=== PATIENT | male | born 1970 | race Caucasian/White ===

== ENCOUNTER 2016-04-25 12:57 | Emergency (ER) | payer BC ==
[2016-04-25 13:40] VITALS: RESP 18
--- NOTE | 2016-04-25 13:50 | UCPHY ---
[id number] yesterday and again today, denies blood clots, reports brown formed stool with blood tinged water in toilet. denies abd pain. also c/o mild chest discomfort last night 1230 while at rest. denies cp at this time HPI/ROS: CHIEF COMPLAINT: Bright red blood per rectum HISTORY OF PRESENT ILLNESS: This is a 45-year-old male who is status post NSTEMI and LAD thrombus/stenting on February 25, 2016 (2 months ago). He is currently taking Coumadin 5 mg daily and aspirin 325 mg daily. Last night he had an episode of bright red blood per rectum with blood in the toilet bowl after moving his bowels. He had a similar event this morning. He feels slightly dizzy (he has had dizziness in the past with positional changes but feels a little more lightheaded today). He does not feel short of breath. He is not having left-sided chest pain. He does report that last night had an episode of bilateral upper chest pain. This was present on waking this morning. He is not having any chest pain at present. He denies abdominal pain. He has had hemorrhoids in the past but is not aware of any at present. He has had recent upper respiratory infection, resolving. REVIEW OF SYSTEMS: A ten point review of systems was performed and is negative with the exception of the items mentioned in the HPI. 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 - Physical Exam Exam: General Appearance: Alert. Vital signs reviewed. Eyes: Pupils equal and round, no conjunctival injection, no discharge. Anicteric. ENT, Mouth: Mucous membranes are moist, no oropharyngeal erythema or edema. Neck: No lymphadenopathy, supple. No JVD. Respiratory: Lungs are clear to auscultation; no wheezes, rales, or rhonchi. Cardiovascular: Regular rate and rhythm; no murmur, rub, or gallop. Gastrointestinal: Abdomen is soft and nontender, no masses or organomegaly, bowel sounds normal. Rectal: No external hemorrhoids. Brown stool on the examining glove. Skin: Warm and dry, no rashes on exposed skin, normal color. Back: Nontender to palpation over the thoracolumbar spine. No CVAT. Extremities: No lower extremity edema, no calf tenderness or swelling. Neurological: Alert and oriented. Moving all four extremities easily and equally. Psychiatric: Normal affect. Constitutional: Initial Vital Signs Temperature (C) 37.0 C 04/25/16 13:33 Heart Rate 60 04/25/16 13:33 Respiratory Rate 18 04/25/16 13:33 Blood Pressure 116/90 H 04/25/16 13:33 O2 Sat (%) 96 04/25/16 13:33 O2 Delivery Mode Room Air Allergies/Adverse Reactions: No Known Allergies Allergy (Unverified 04/25/16 13:33) Home Medications: Medication Instructions Recorded Aspirin EC [Aspirin EC 325 mg (*)] 325 mg PO DAILY #0 tab 02/28/16 Carvedilol [Coreg (*)] 6.25 mg PO BIDMEAL #60 tab 02/28/16 Nitroglycerin [Nitrostat 0.4 mg 0.4 mg SL Q5M PRN #1 btl 02/28/16 (*)] Prasugrel HCl [Effient 10mg (*)] 10 mg PO DAILY #30 tab 02/28/16 Ramipril [Altace 2.5mg (*)] 2.5 mg PO DAILY #30 cap 02/28/16 Rosuvastatin Calcium [Crestor 40mg 40 mg PO DAILY #30 tab 02/28/16 (*)] Warfarin Sodium [Coumadin 5MG (*)] 5 mg PO DAILY16 #30 tab 02/28/16 Aspirin EC [Aspirin EC 325 mg (*)] 325 mg PO DAILY #30 tab 03/02/16 Enoxaparin [Lovenox 100 MG (*)] 90 mg SC BID #14 syr 03/02/16 Pantoprazole Sodium [Protonix 40mg 40 mg PO DAILY #30 tab 03/02/16 (*)] Potassium Cl [Klor-Con 20 meq (*)] 20 meq PO DAILY #10 tab 04/25/16 Medical Decision Making - Diagnostics EKG Interpretation: 12 lead EKG is interpreted in Trace master View by emergency department physician. Sinus rhythm with a rate is 62. There is T-wave inversion in lead 3 that is not seen on a previous EKG, no acute ischemic changes. ED Course/Re-evaluation: Recent SC/cath/stent on triple anti-coagulation who presents with asymptomatic BRBPR. No rectal pain, no external hemorrhoids. INR under two. CBC WNL, HGB 15. VS stable, no evidence of hemodynamic instability. EKG without acute changes. Initially I suspected bleeding from anticoagulants, which still might be the case. Since he is not unstable I think that he can return home. He will return if bleeding persists or worsens or if he becomes symptomatic. I spoke with Dr. Jacques, senior telecommunications engineer for cardiology. She recommends K replacement, which is being prescribed. He will FU with cardiology early this week (day after tomorrow). Other sources of lower GI bleeding that I considered include but are not limited toexternal or internal hemorrhoids, anal fissure, malignancy, ulcerative colitis, infectious colitis, and angiodysplasia. - Data Points Laboratory Results: Laboratory Results 04/25/16 14:03 04/25/16 14:03 Departure - Departure Disposition: Home, Routine, Self-Care Clinical Impression: Rectal bleeding Condition: Good Instructions: Rectal Bleeding (ED) Additional Instructions: Follow up with Dr. Ricks. Talk with him about how long you need to continue triple anticoagulation. Call his office tomorrow to schedule an appointment. Make sure that he is aware of this rectal bleeding. If the bleeding persists he will also need to follow up with gastroenterology. If you continue with bright red blood per rectum, if you develop chest pain, P of abdominal pain, if you are short of breath, if you become dizzy or light- headed--you should be re-evaluated. I am starting you on some potassium replacement. Referrals: Jason Ricks MD [Medical Doctor] - As per Instructions Prescriptions: Potassium Cl [Klor-Con 20 meq (*)] 20 meq PO DAILY #10 tab - PQRS PQRS Measurement: Does not apply.
--- NOTE | 2016-04-25 13:50 | CPEKG ---
Heart Rate: 62 RR Interval: 968 P-R Interval: 196 QRSD Interval: 90 QT Interval: 416 QTC Interval: 423 P [place]: 41 QRS [place]: 8 T Wave [place]: 8 EKG Severity - NORMAL ECG - EKG Impression: SINUS RHYTHM Electronically Signed By: Shae Eckert 25-Apr-2016 15:14:13
[2016-04-25 14:11] LABS: % IMMATURE GRANULYOCYTES 0.2 % (0.0-1.1); ABSOLUTE IMMATURE GRANULOCYTES 0.01 10^3/uL (0.00-0.10); ADD DIFF? NO; ADD MORPH? NO; ADD SCAN? NO; ATYPICAL LYMPHOCYTE FLAG 20 (0-99); FRAGMENT RBC FLAG 0 (0-99); HEMATOCRIT 44.2 % (40.0-51.0); HEMOGLOBIN 15.2 g/dL (13.7-17.5); LEFT SHIFT FLG 0 (0-99); LIPEMIA HEMOLYSIS FLAG 90 (0-99); MEAN CELL HEMOGLOBIN 29.4 pg (27.9-34.1); MEAN CELL HEMOGLOBIN CONCENTR. 34.4 g/dL (32.4-36.7); MEAN CELL VOLUME 85.5 fL (81.5-99.8); MEAN PLATELET VOLUME 9.8 fL (8.7-11.7); PLATELET CLUMPS FLAG 30 (0-99); PLATELET COUNT 231 10^3/uL (150-400); RED BLOOD CELL COUNT 5.17 10^6/uL (4.40-6.38)
[2016-04-25 14:22] LABS: INR 1.96 (0.83-1.16); PROTIME(PATIENT) 21.9 SEC (12.0-15.0)
[2016-04-25 14:24] LABS: ANION GAP 8 mEq/L (8-16); CALCIUM 6.4 mg/dL (8.5-10.4); CARBON DIOXIDE 21 mEq/l (22-31); CHLORIDE 115 mEq/L (97-110); CREATININE 0.6 mg/dL (0.7-1.3); GLOMERULAR FILTRATION RATE > 60; GLUCOSE 72 mg/dL (70-100); POTASSIUM 3.1 mEq/L (3.5-5.2); SODIUM 144 mEq/L (134-144)
[2016-04-25 15:37] VITALS: BP 104/73; PULSE 58; TEMP 98.4; O2SAT 95
== END 2016-04-25 15:37 | disposition home or self-care (01) ==
LOC: CED 12:57
DX: K62.5 Hemorrhage of anus and rectum (principal); R42 Dizziness and giddiness; Z79.01 Long term (current) use of anticoagulants; Z95.9 Presence of cardiac and vascular implant and graft, unspecified
CPT/HCPCS: 80048-PO; 82270-PO; 85025-PO; 85610-PO; 93010-PO; 99214-PO; G0463-PO

== ENCOUNTER 2016-08-22 02:26 | Observation (INO) | payer BC ==
--- NOTE | 2016-08-22 02:49 | CPEKG ---
Heart Rate: 73 RR Interval: 822 P-R Interval: 192 QRSD Interval: 94 QT Interval: 392 QTC Interval: 432 P [place]: 54 QRS [place]: 32 T Wave [place]: 18 EKG Severity - NORMAL ECG - EKG Impression: SINUS RHYTHM Electronically Signed By: Carmelo Davis 22-Aug-2016 04:12:02
[2016-08-22] MEDS ORDERED: ASPIRIN 81 MG CHEWABLE TAB ONE (02:51)
[2016-08-22] MEDS ORDERED: NITROGLYCERIN 0.4 MG BTL SL ONE (02:51)
[2016-08-22] MEDS ORDERED: ASPIRIN 81 MG CHEWABLE TAB PO ONE (02:52)
[2016-08-22] MEDS: NITROGLYCERIN 0.4 MG BTL SL PRN ×3 (02:55→03:25)
[2016-08-22 03:04] LABS: % IMMATURE GRANULYOCYTES 0.3 % (0.0-1.1); ABSOLUTE IMMATURE GRANULOCYTES 0.02 10^3/uL (0.00-0.10); ADD DIFF? NO; ADD MORPH? NO; ADD SCAN? NO; ATYPICAL LYMPHOCYTE FLAG 0 (0-99); FRAGMENT RBC FLAG 0 (0-99); HEMATOCRIT 45.9 % (40.0-51.0); HEMOGLOBIN 16.2 g/dL (13.7-17.5); LEFT SHIFT FLG 0 (0-99); LIPEMIA HEMOLYSIS FLAG 90 (0-99); MEAN CELL HEMOGLOBIN 29.7 pg (27.9-34.1); MEAN CELL HEMOGLOBIN CONCENTR. 35.3 g/dL (32.4-36.7); MEAN CELL VOLUME 84.2 fL (81.5-99.8); MEAN PLATELET VOLUME 9.7 fL (8.7-11.7); PLATELET CLUMPS FLAG 0 (0-99); PLATELET COUNT 240 10^3/uL (150-400); RED BLOOD CELL COUNT 5.45 10^6/uL (4.40-6.38); RED CELL DISTRIBUTION WIDTH 12.2 % (11.5-15.2)
--- NOTE | 2016-08-22 03:11 | EDPHY ---
H & P Time Seen by Provider: 08/22/16 02:40 HPI/ROS: CHIEF COMPLAINT: pressure feeling in the subxiphoid area as well as a sharp pain in the left sub axillary area HISTORY OF PRESENT ILLNESS: 45-year-old male with known coronary disease with recent mural thrombus and stenting this past February of 2016. He had a follow- up echocardiogram which cleared things in mid July. He is scheduled to discontinue the warfarin therapy in approximately 3 weeks. He has recently been training for a marathon scheduled for September 12. His most recent 1 was approximately 7 days ago which time he did a little over training experiences some right lateral knee discomfort and left Achilles discomfort so he has not run this week. However showed that he has not noted any decrease in his exercise capacity. Went to bed at 10:30 p.m. this evening feeling well. However he woke up at 12: 30 a.m. with a sense of mild, grade 2.5/10 discomfort as noted above in the left sub axillary area in the anterior axial line as well as in the central subxiphoid region. Neither 1 of the symptoms feel nearly as intense though more or less similar, as his experience this past February but also neither 1 feel like he has when he gets his water brash, reflux symptomatology 1st Protonix. Whereas this past February he did have sense of nausea there is none now. Furthermore there is no diaphoresis or shortness of breath at this time. The discomfort itself on the left pectoral region is nonpleuritic. He has not had a recent URI with some distinct, progressive improvement on Mucinex as well as antibiotics - and does not note even now when asked that there is any pain in the left pectoral region that is aggravated by coughing or clearing his throat as asked to do so by me. Further he was able to lay on the area without difficulty. He is not taking any medications to try to relieve this discomfort. He does not take any aspirin as he is on Effient as well as he did not take any liquid antacids. He did not have any nitroglycerin. He does note that this past winter he did have some trouble with a low-grade GI bleed on the aspirin and thus has been only on the Effient He has no risk factors for DVT or PE. He has no risk factors for aortic aneurysm REVIEW OF SYSTEMS: Constitutional: No fever, no chills. Eyes: No discharge ENT: No sore throat. Cardiovascular: No palpitations. Respiratory: No cough, shortness of breath, or wheezing. Gastrointestinal: No nausea vomiting or diarrhea. No abdominal pain. Genitourinary: No flank pain Musculoskeletal: No back pain. Skin: No rashes. Neurological: No headache. 10 point ROS otherwise negative Source: Patient Exam Limitations: No limitations - Personal History Current Tetanus/Diphtheria Vaccine: Unsure - Medical/Surgical History Hx Asthma: No Hx Chronic Respiratory Disease: No Hx Diabetes: No Hx Cardiac Disease: Yes Hx Renal Disease: No Hx Cirrhosis: No Hx Alcoholism: No Hx HIV/AIDS: No Hx Splenectomy or Spleen Trauma: No Other PMH: ortho, CO with cardiac stent x1(02/25/2016), mural thrombis, neg hypercoaguable work up. - Family History Significant Family History: Vascular disease (GF with CO in 80's, mother with homocysteine disease.), Other - Social History Smoking Status: Never smoked Alcohol Use: None Drug Use: None - Physical Exam Exam: General Appearance: Alert, no distress. Afebrile. Normal phonation. No respiratory distress. Skin is warm and dry without diaphoresis Eyes: Pupils equal and round no pallor or injection. No icterus ENT, Mouth: Mucous membranes moist. Pharynx without erythema or exudate. TM Clear. Neck: No adenopathy. Supple. No JVD. Trachea in midline. Respiratory: There are no retractions, lungs are clear to auscultation. Cardiovascular: Regular rate and rhythm. No murmur. There is no reproducible chest pain by palpation or him taking the breath clearing his throat. Likewise with cough. Abdomen: Soft and nontender, no masses, bowel sounds normal. Neurological: Ox3. No motor weakness. Sensation intact. Gait nl. Skin: Warm and dry, no rashes. Musculoskeletal: No joint swelling. Extremities: No edema. Homans sign negative. No cords. Psychiatric: Normal affect. Patient is calm. Constitutional: Initial Vital Signs Heart Rate 81 08/22/16 02:55 Respiratory Rate 16 08/22/16 02:55 Blood Pressure 131/97 H 08/22/16 02:55 O2 Sat (%) 96 08/22/16 02:55 O2 Delivery Mode Room Air Allergies/Adverse Reactions: No Known Allergies Allergy (Verified 08/22/16 02:55) Home Medications: Medication Instructions Recorded Ramipril [Altace 2.5mg (*)] 2.5 mg PO DAILY #30 cap 02/28/16 Warfarin Sodium [Coumadin 5MG (*)] 5 mg PO DAILY16 #30 tab 02/28/16 Pantoprazole Sodium [Protonix 40mg 40 mg PO DAILY #30 tab 03/02/16 (*)] Crestor 08/22/16 Effient 08/22/16 Medical Decision Making - Diagnostics EKG Interpretation: EKG. Interpreted by me contemporaneously. This is normal sinus rhythm with a rate of 69. QTC is 411. There is essentially a normal EKG with either early repolarization in V2 and V3 or hyperacute Ts. When compared to the EKG from April of 2016 this unchanged. EKG 2. Interpreted by me contemporaneously. This is a right-sided EKG. Evidently V leads V1 and V2 were switched but the leads V3 through V6 are right- sided leads. They indicated mild extent of T inversion with no significant ST segment change to suggest anderson infarction. ED Course/Re-evaluation: I was called to the triage testing this gentleman initially. He was ambivalent about staying here for any ER evaluation versus going by private car to 1 of the local ERs. I met and explained with to him that given his circumstances he will be recommended admission however we should do a scope initial evaluation to see if he meets criteria for STEMI. He agreed. I had a chance to review the old records from this past February. There is a question of a mural thrombus with this thinks mid and proximal LAD lesions with large amount of the intravascular thrombus required stenting. Patient reports a bare metal stent. He was on Effient however intolerant of aspirin as there is mild GI bleed. Here there is no reproducible chest pain. He was given nitroglycerin x2 and then 1 a little bit later in the course of his visit. He had distinct improvement of the left anterior axillary line discomfort but the subxiphoid pressure discomfort persisted. Four o'clock a.m.-patient is asymptomatic with respect to the left anterior axillary line pain. Still a little pressure ceiling subxiphoid. I have explained to him the need for admission for observation status with subsequent stress testing. He would like to drive himself thus he would like to wait on for 3 hour troponin, before he leaves A to go straight to [facility] for admission to the hospital. Thereby at 5:45 a.m. he will have blood drawn with results at approximately 6:[address] calls to Medicine at that time. At this point in time he is having no complications and his initial troponin is negative as well as other laboratory tests as follows: Chest [id number] heart. No failure. Hemoglobin hematocrit normal What WBC normal Electrolytes normal Troponin undetectable BNP normal 6:30 a.m.-final meeting with the patient. Explained need for transfer via ambulance as he has unstable angina. Second troponin is negative. However he insists on going by private car. I have subsequently paged the hospitalist to discuss the case. Heart Score = 5. Discussed with Dr. Jaden Estrada who will be accepting the patient for admission to the medical floor, , EACU Differential Diagnosis: Differential diagnosis includes but is not limited to the following: ACS, myocardial infarction, pneumothorax, pleurisy, pulmonary embolus, aortic dissection, anxiety, muscle strain. - Data Points Laboratory Results: Laboratory Results 08/22/16 02:45 08/22/16 02:45 08/22/16 08/22/16 08/22/16 05:44 02:45 02:45 WBC RBC Hgb Hct MCV MCH MCHC RDW Plt Count MPV Neut % (Auto) Lymph % (Auto) [place] % (Auto) Eos % (Auto) Baso % (Auto) Nucleat RBC Rel Count Absolute Neuts (auto) Absolute Lymphs (auto) Absolute Monos (auto) Absolute Eos (auto) Absolute Basos (auto) Absolute Nucleated RBC Immature Gran % Immature Gran # PT 24.7 SEC H SEC (12.0-15.0) INR 2.25 H (0.83-1.16) Sodium 140 mEq/L mEq/L (134-144) Potassium 4.1 mEq/L mEq/L (3.5-5.2) Chloride 103 mEq/L mEq/L (97-110) Carbon Dioxide 23 mEq/l mEq/l (22-31) Anion Gap 14 mEq/L mEq/L (8-16) BUN 18 mg/dL mg/dL (7-23) Creatinine 0.9 mg/dL mg/dL (0.7-1.3) Estimated GFR > 60 Glucose 93 mg/dL mg/dL (70-100) Calcium 9.4 mg/dL mg/dL (8.5-10.4) Troponin I < 0.012 ng/mL ng/mL < 0.012 ng/mL ng/mL (0-0.034) (0-0.034) NT-Pro-B Natriuret Pep 34 pg/mL pg/mL (0-125) 08/22/16 02:45 WBC 6.60 10^3/uL 10^3/uL (3.80-9.50) RBC 5.45 10^6/uL 10^6/uL (4.40-6.38) Hgb 16.2 g/dL g/dL (13.7-17.5) Hct 45.9 % % (40.0-51.0) MCV 84.2 fL fL (81.5-99.8) MCH 29.7 pg pg (27.9-34.1) MCHC 35.3 g/dL g/dL (32.4-36.7) RDW 12.2 % % (11.5-15.2) Plt Count 240 10^3/uL 10^3/uL (150-400) MPV 9.7 fL fL (8.7-11.7) Neut % (Auto) 54.7 % % (39.3-74.2) Lymph % (Auto) 33.3 % % (15.0-45.0) [place] % (Auto) 8.2 % % (4.5-13.0) Eos % (Auto) 2.9 % % (0.6-7.6) Baso % (Auto) 0.6 % % (0.3-1.7) Nucleat RBC Rel Count 0.0 % % (0.0-0.2) Absolute Neuts (auto) 3.61 10^3/uL 10^3/uL (1.70-6.50) Absolute Lymphs (auto) 2.20 10^3/uL 10^3/uL (1.00-3.00) Absolute Monos (auto) 0.54 10^3/uL 10^3/uL (0.30-0.80) Absolute Eos (auto) 0.19 10^3/uL 10^3/uL (0.03-0.40) Absolute Basos (auto) 0.04 10^3/uL 10^3/uL (0.02-0.10) Absolute Nucleated RBC 0.00 10^3/uL 10^3/uL (0-0.01) Immature Gran % 0.3 % % (0.0-1.1) Immature Gran # 0.02 10^3/uL 10^3/uL (0.00-0.10) PT INR Sodium Potassium Chloride Carbon Dioxide Anion Gap BUN Creatinine Estimated GFR Glucose Calcium Troponin I NT-Pro-B Natriuret Pep Medications Given: Discontinued Medications Aspirin (Aspirin) 324 mg PO EDNOW ONE Stop: 08/22/16 02:53 Last Admin: 08/22/16 02:55 Dose: 324 mg Departure - Departure Clinical Impression: ACS (acute coronary syndrome) Chest pain Qualifiers: Chest pain type: unspecified Qualified Code(s): R07.9 - Chest pain, unspecified
[2016-08-22 03:16] LABS: INR 2.25 (0.83-1.16); PROTIME(PATIENT) 24.7 SEC (12.0-15.0)
--- NOTE | 2016-08-22 03:16 | CPEKG ---
Heart Rate: 68 RR Interval: 882 P-R Interval: 196 QRSD Interval: 90 QT Interval: 400 QTC Interval: 426 P [place]: 52 QRS [place]: 46 T Wave [place]: 25 EKG Severity - ABNORMAL ECG - EKG Impression: SINUS RHYTHM EKG Impression: CONSIDER ANTERIOR INFARCT EKG Impression: NONSPECIFIC T ABNORMALITIES, ANT-LAT LEADS Electronically Signed By: Carmelo Davis 22-Aug-2016 04:12:02
[2016-08-22 03:17] LABS: ANION GAP 14 mEq/L (8-16); CALCIUM 9.4 mg/dL (8.5-10.4); CARBON DIOXIDE 23 mEq/l (22-31); CHLORIDE 103 mEq/L (97-110); CREATININE 0.9 mg/dL (0.7-1.3); GLOMERULAR FILTRATION RATE > 60; GLUCOSE 93 mg/dL (70-100); POTASSIUM 4.1 mEq/L (3.5-5.2); SODIUM 140 mEq/L (134-144)
[2016-08-22 03:36] LABS: TROPONIN I < 0.012 ng/mL (0-0.034)
[2016-08-22 07:26] VITALS: RESP 16
[2016-08-22 09:07] VITALS: PULSE 78; O2SAT 96
[2016-08-22 09:12] VITALS: TEMP 97.8
[2016-08-22 09:14] VITALS: BP 115/84
--- NOTE | 2016-08-22 09:19 | SOAPPROG ---
[facility] Progress Note Assessment/Plan: Assessment: Cardiology consultation performed and dictated. 52 y/o man with CAD and ID in 03/10 with MARIBELL to LAD and questionable anterior ID with LV thrombus. Has been doing well training for marathon running without symptoms. Sees Dr. Jason Desai at [facility]. Last night felt anxious, dizzy and some left sharp CP not similar to previous ID. Troponins x 2 normal. Serial ECGs shows new TWI laterally. Currently CP free. On Coumadin with INR therapeutic. PLAN: 1)no change in current meds. 2)ETT cardiolite today. If stress cardiolite shows defects could be old scar from ID in February 2016 and will need to do rest images. Depending how he does on ETT clinically will decide if needs to stay in hospital tonight or go home tonight with coming in for rest images tommorrow. Thanks. 08/22/16 09:15 Objective: Vital Signs Temp Pulse Resp BP Pulse Ox 36.6 C 78 16 115/84 H 96 08/22/16 09:06 08/22/16 09:06 08/22/16 09:06 08/22/16 09:13 08/22/16 09:06 PT 24.7 SEC (12.0-15.0) H 08/22/16 02:45 INR 2.25 (0.83-1.16) H 08/22/16 02:45 ICD10 Worksheet Patient Problems: Problems Problem Status Onset ACS (acute coronary syndrome) Acute Chest pain Acute Chest pain Acute S/P cardiac cath Acute
--- NOTE | 2016-08-22 10:35 | GCON ---
[f rep st] CONSULTATION CARDIOLOGY CONSULTATION DATE OF CONSULTATION: 08/22/2016 REASON FOR CONSULTATION: Evaluate gentleman with dizziness and atypical chest pain with new EKG mark matt. HISTORY OF PRESENT ILLNESS: I was asked by Dr. Tong Bell to consult for the above reasons. The pa dorene is a 45-year-old gentleman with the following cardiac history. He had had no heart problems u ntil last February when he developed pressure across his chest. He was admitted to the hospital and had abnormal enzymes and a catheterization showed a subtotaled LAD for which he got a bare metal st ent to the LAD. The rest of his coronaries looked good. He had mild apical wall motion abnormality and was put on Coumadin for a possible LV thrombus. He has been seeing Dr. Jason Ricks at the [facility]. Since and doing well. In fact, he is training for a marathon, jogging without di fficulty. Last night, around midnight, he felt anxious and dizzy and had sharp pain over his left s houlder, not consistent with his previous angina. He came to the emergency room for evaluation. Tr oponins x2 are negative but serial EKGs demonstrate new T-wave inversions in the lateral leads. Cur rently, he is chest pain-free without shortness of breath. PAST MEDICAL HISTORY: Coronary artery disease. PAST SURGICAL HISTORY: LAD stent, bare metal, in February of 2016. CURRENT MEDICATIONS: Effient 10 mg per day, Altace 2.5 mg per day, warfarin, Crestor and Protonix. ALLERGIES: No known drug allergies. SOCIAL HISTORY: The patient has rare alcohol intake. He denies tobacco use. FAMILY HISTORY: Unremarkable for premature coronary artery disease. REVIEW OF SYSTEMS: Patient reports no recent fevers, chills, weight gain or weight loss. He has sauer d no GI bleed symptoms such as hematemesis, melena, or bright red blood per rectum. The rest of 10- point review of systems is negative. PHYSICAL EXAMINATION: VITAL SIGNS: Afebrile. Pulse 78, blood pressure 115/84, respirations 16. G ENERAL: A normal-appearing gentleman in no acute distress without chest pain or using accessory res piratory muscles. EYES: Pupils equal and reactive to light. ENT: Oral mucosa with no cyanosis. NECK: Jugular venous pressure to 7 cm. Carotid pulses 2+ bilaterally with no obvious bruits. No t hyromegaly noted. LUNGS: Clear to auscultation bilaterally without rales, rhonchi, or wheezing. H EART: Normal PMI. Regular rate and rhythm with no obvious murmurs or S3. ABDOMEN: Soft and nonte nder. No guarding or rebound. No bruit over his abdominal aorta. EXTREMITIES: 2+ peripheral puls es, including femoral and pedal pulses. No edema noted. MUSCULOSKELETAL: No scoliosis, no nuchal rigidity. SKIN: No cyanosis or bleeding. LABORATORY STUDIES: EKG: Normal sinus rhythm with T-wave inversions in lead 3 and V4 through V6. No acute ST elevation noted. LABORATORY DATA: White count 6.6, hematocrit 46, platelets 240,000. MCV 84, INR 2.25. Sodium 140, potassium 4.1, chloride 103, bicarb 23, BUN 18, creatinine 0.9. Glucose 93. Troponin negative x2. NT proBNP level 34. IMPRESSION: A 45-year-old gentleman with coronary artery disease status post a bare metal stent to the proximal LAD in February of 2016 with recurrent but atypical chest pain but T-wave inversions in the lateral leads. Clinically, he does not appear to be having unstable angina or heart failure. PLAN: 1. No change in current medications. 2. Will do a treadmill Cardiolite stress test today. 3. If the stress Cardiolite images demonstrate a defect in the apex, will need to get a rest image to compare. 4. Would do a heart catheterization if he has reversible ischemia on Cardiolite images. Thank you for allowing me to participate in the care of this patient. I will follow along closely w jeff gutierres during his hospitalization. /[id number]/MODL
--- NOTE | 2016-08-22 10:42 | PDGENHP ---
History and Physical - Chief Complaint chest pain - History of Present Illness 45 y/o male with a history of coronary artery disease bare metal LAD stent placed 02/2016 and possible mural thrombus on Warfarin presenting to the ED with chest pain. He reports waking up from sleep at 12:30am this morning with discomfort in his chest, isolated to the left subaxillary area that presented as cramping and stabbing pain, rating 2.5/10 with no radiation. Associated symptoms included dizziness and tingling down his left arm. By the time he arrived to the ER, his arm tingling subsided. Upon arrival he was given nitroglycerin x2 which relieved subaxillary pain. He reports to be compliant with his antiplatelet medications. Currently he reports no chest pain with mild dizziness. He denies shortness of breath, dyspnea, cough, numbness or tingling, edema, headache, changes in vision , nausea, and abdominal pain. Last Tuesday was his last INR check which was found to be 1.6. He was asked to double his dose and today INR presents 2.26 He also reports he has been training for the [employer] on September 12. He did not experience any chest pain symptoms subsequent to his long run of 22 miles last Tuesday. History Information - Allergies/Home Medication List Allergies/Adverse Reactions: No Known Allergies Allergy (Verified 08/22/16 02:55) Home Medications: Prasugrel HCl [Effient 10mg (*)] 10 mg PO DAILY 08/22/16 [Last Taken 08/22/16 08 :00] Ramipril [Altace 5mg (*)] 5 mg PO DAILY 08/22/16 [Last Taken 08/22/16 08:00] Rosuvastatin Calcium [Crestor 40mg (*)] 40 mg PO DAILY 08/22/16 [Last Taken 08:00] I have personally reviewed and updated: family history, medical history, social history, surgical history Past Medical History: DE with stent (02/25/16), mural thrombus - Past Medical History Additional medical history: anterior wall DE. LV thrombus - Surgical History Reports: no pertinent surgical hx - Family History Positive for: father with history of CAD younger than 55 (age 40) Additional family history: PGF: CAD. M: homocysteine deficiency - Social History Smoking Status: Never smoked Alcohol Use: None Drug Use: None Additional social history: Pt lives with , works in an office setting. Review of Systems ROS: 10pt was reviewed & negative except for what was stated in HPI & below Physical Exam Temp Pulse Resp BP Pulse Ox 36.6 C 78 16 115/84 H 96 08/22/16 09:06 08/22/16 09:06 08/22/16 09:06 08/22/16 09:13 08/22/16 09:06 Constitutional: no apparent distress, appears nourished, not in pain Eyes: PERRL, anicteric sclera, EOMI Ears, Nose, Mouth, Throat: moist mucous membranes, hearing normal, ears appear normal, no oral mucosal ulcers Cardiovascular: regular rate and rhythym, no murmur, rub, or gallop, No edema Respiratory: no respiratory distress, no rales or rhonchi, clear to auscultation Gastrointestinal: normoactive bowel sounds, soft, non-tender abdomen, no palpable masses Genitourinary: no bladder fullness, no bladder tenderness Skin: warm, normal color, no rashes or abrasions, no fluctuance, no induration, No mottled Musculoskeletal: full muscle strength, no muscle tenderness, normal joint ROM, no joint effusions Neurologic: AAOx3, CN II-XII Intact, No facial droop Psychiatric: interacting appropriately, not anxious, not encephalopathic, thought process linear Lymph, Heme, Immunologic: no cervical LAD, no supraclavicular LAD Lab Data & Imaging Review 08/22/16 02:45 08/22/16 02:45 WBC 6.60 10^3/uL (3.80-9.50) 08/22/16 02:45 RBC 5.45 10^6/uL (4.40-6.38) 08/22/16 02:45 Hgb 16.2 g/dL (13.7-17.5) 08/22/16 02:45 Hct 45.9 % (40.0-51.0) 08/22/16 02:45 MCV 84.2 fL (81.5-99.8) 08/22/16 02:45 MCH 29.7 pg (27.9-34.1) 08/22/16 02:45 MCHC 35.3 g/dL (32.4-36.7) 08/22/16 02:45 RDW 12.2 % (11.5-15.2) 08/22/16 02:45 Plt Count 240 10^3/uL (150-400) 08/22/16 02:45 MPV 9.7 fL (8.7-11.7) 08/22/16 02:45 Neut % (Auto) 54.7 % (39.3-74.2) 08/22/16 02:45 Lymph % (Auto) 33.3 % (15.0-45.0) 08/22/16 02:45 [place] % (Auto) 8.2 % (4.5-13.0) 08/22/16 02:45 Eos % (Auto) 2.9 % (0.6-7.6) 08/22/16 02:45 Baso % (Auto) 0.6 % (0.3-1.7) 08/22/16 02:45 Nucleat RBC Rel Count 0.0 % (0.0-0.2) 08/22/16 02:45 Absolute Neuts (auto) 3.61 10^3/uL (1.70-6.50) 08/22/16 02:45 Absolute Lymphs (auto) 2.20 10^3/uL (1.00-3.00) 08/22/16 02:45 Absolute Monos (auto) 0.54 10^3/uL (0.30-0.80) 08/22/16 02:45 Absolute Eos (auto) 0.19 10^3/uL (0.03-0.40) 08/22/16 02:45 Absolute Basos (auto) 0.04 10^3/uL (0.02-0.10) 08/22/16 02:45 Absolute Nucleated RBC 0.00 10^3/uL (0-0.01) 08/22/16 02:45 Immature Gran % 0.3 % (0.0-1.1) 08/22/16 02:45 Immature Gran # 0.02 10^3/uL (0.00-0.10) 08/22/16 02:45 PT 24.7 SEC (12.0-15.0) H 08/22/16 02:45 INR 2.25 (0.83-1.16) H 08/22/16 02:45 Sodium 140 mEq/L (134-144) 08/22/16 02:45 Potassium 4.1 mEq/L (3.5-5.2) 08/22/16 02:45 Chloride 103 mEq/L (97-110) 08/22/16 02:45 Carbon Dioxide 23 mEq/l (22-31) 08/22/16 02:45 Anion Gap 14 mEq/L (8-16) 08/22/16 02:45 BUN 18 mg/dL (7-23) 08/22/16 02:45 Creatinine 0.9 mg/dL (0.7-1.3) 08/22/16 02:45 Estimated GFR > 60 08/22/16 02:45 Glucose 93 mg/dL (70-100) 08/22/16 02:45 Calcium 9.4 mg/dL (8.5-10.4) 08/22/16 02:45 Troponin I < 0.012 ng/mL (0-0.034) 08/22/16 09:00 NT-Pro-B Natriuret Pep 34 pg/mL (0-125) 08/22/16 02:45 Visualized and Interpreted Chest x-ray results: Yes Chest X-Ray results: no infiltrate, normal Visualized and Interpreted EKG results: Yes EKG Interpretation: Positive for: normal sinsus rhythm, T waves inversion (ant lateral leads). Negative for: ST elevation, ST depression Assessment & Plan Assessment: 45 y/o male known coronary artery disease with bare metal stent placed 02/2016 and possible mural thrombus on Warfarin presenting with: #Atypical chest pain with T wave inversion in the Anterior Lateral Leads -nuclear stress test was done today showing Normal myocardial perfusion study with no evidence of infarct or stress induced ischemia.. 2. Normal left ventricular ejection fraction. -I discussed the case with Dr. Perez and who is in agreement for DC home with outpatient followup #History of possible mural thrombus on Warfarin for anticoagulation -Monitor INR #Dizziness (resolving) -continue to monitor for worsening symptoms Disposition: Will discharge home with outpatient followup
--- NOTE | 2016-08-22 11:09 | CPR ---
[f rep st] NONINVASIVE CARDIAC PROCEDURE REPORT DATE OF PROCEDURE: 08/22/2016 PROCEDURE PERFORMED: Treadmill Portion Treadmill Cardiolite Stress Test. INDICATIONS: Chest pain, abnormal EKG, history of coronary artery disease with LAD stent. CONSENT: Signed. Risks, benefits, and alternatives discussed with patient. He agrees to proceed. TECHNICAL DIFFICULTIES: None. DESCRIPTION OF PROCEDURE AND RESULTS: The patient exercised on a full [place] treadmill protocol for 10 minutes and 45 seconds without chest pain. His initial EKG demonstrated normal sinus rhythm, wit h no ST-T wave abnormalities with a heart rate of 68, and a blood pressure of 112/76. At peak exerc ise, his heart rate increased to 158 beats per minute, which represented 90% of his age predicted [place] [facility]. He had 1.[address] depression noted in the inferolateral leads, which quickly resolved during recovery. There were no arrhythmias with exercise. His peak blood pressure was 150/62. All of his vital signs returned to normal by the end of recovery. Of note, 23 millicu joelle of technetium-99m were injected 1 minute before peak exercise. Rest Cardiolite images are pend ing at time of dictation. FINAL IMPRESSIONS: 1. Negative treadmill stress test by EKG criteria. 2. Clinically, no chest pain with exercise. 3. Normotensive blood pressure with exercise. 4. No cardiac arrhythmias with exercise. 5. Cardiolite images pending and reported on separate report. COMPLICATIONS: None. /[id number]/MODL
[2016-08-22] MEDS ORDERED: WARFARIN SODIUM 5 MG TAB PO SCH (16:00)
[2016-08-23] MEDS ORDERED: ROSUVASTATIN CALCIUM 40 MG TAB PO SCH (09:00)
[2016-08-23] MEDS ORDERED: PANTOPRAZOLE SODIUM 40 MG TAB PO SCH (09:00)
[2016-08-23] MEDS ORDERED: PRASUGREL HCL 10 MG TAB PO SCH (09:00)
[2016-08-23] MEDS ORDERED: RAMIPRIL 5 MG CAP PO SCH (09:00)
== END 2016-08-22 13:53 | disposition home or self-care (01) ==
LOC: CED 02:26 → CEDHOLD 06:46 → F1N 08:19
PROVIDERS: ADMIT Internal Medicine; ATTEND Internal Medicine
DX: I24.9 Acute ischemic heart disease, unspecified (principal); I25.10 Atherosclerotic heart disease of native coronary artery without angina pectoris; Z86.718 Personal history of other venous thrombosis and embolism; Z79.01 Long term (current) use of anticoagulants
CPT/HCPCS: 71010; 78451; 93005; 93017; A9500; G0378; 80048-PO; 83880-PO; 84484-PO; 85025-PO; 85610-PO

== ENCOUNTER 2017-04-14 23:07 | Observation (INO) | payer BC ==
[2017-04-14] MEDS ORDERED: ASPIRIN 81 MG CHEWABLE TAB PO ONE ×2 (23:15→23:23)
--- NOTE | 2017-04-14 23:18 | CPEKG ---
Heart Rate: 83 RR Interval: 723 P-R Interval: 180 QRSD Interval: 86 QT Interval: 368 QTC Interval: 433 P Marine: 59 QRS Marine: 51 T Wave Marine: 36 EKG Severity - NORMAL ECG - EKG Impression: SINUS RHYTHM Electronically Signed By: Andreia Babb 16-Apr-2017 06:03:53
[2017-04-14] MEDS ORDERED: NITROGLYCERIN 2% 1 GM PACKET TP ONE (23:26)
--- NOTE | 2017-04-14 23:26 | EDPHY ---
General - History Smoking Status: Never smoked Narrative: CHIEF COMPLAINT: Chest pain HISTORY OF PRESENT ILLNESS: Patient complains of chest pain. This started earlier today but worsened acutely 1 hr ago. It starts in the right axilla and moves to the left. It is described as a burning type of chest pain. He describes it as being the exact same pain he had last February when he was diagnosed with an IL. At that time he had a bare metal stent placed. He was on anticoagulation until February of this year. He had a recurrence of pain in July for which she was admitted. He had a negative stress test here. He has no cough. He did have some nausea with 2 episodes of vomiting earlier today. The pain is described as completely different from his hiatal hernia and GERD type of pain. No fever. No cough. No other associated complaints or modifying factors. REVIEW OF SYSTEMS: Ten systems reviewed and are negative unless otherwise noted in the HPI PCP: Dr. Guthrie SPECIALISTS: Dr. Ricks PAST MEDICAL HISTORY: Coronary artery disease, dyslipidemia SOCIAL HISTORY: Nonsmoker. No alcohol use. No drug use. Works in higher education FAMILY HISTORY: Noncontributory EXAMINATION General Appearance: Alert, no distress Head: normocephalic, atraumatic Eyes: Pupils equal and round, no conjunctival pallor or injection ENT, Mouth: Mucous membranes moist Neck: Normal inspection, supple, non-tender Respiratory: Lungs are clear to auscultation. No wheezing or rhonchi or crackles Cardiovascular: Regular rate and rhythm. No murmur Gastrointestinal: Abdomen is soft and nontender Back: non-tender, no bony abnormalities Neurological: A&O, nonfocal, normal gait Skin: Warm and dry, no rash. No petechiae or purpura Extremities: Nontender, no pedal edema Psychiatric: Mood and affect normal DIFFERENTIAL DIAGNOSES: Including but not limited to ACS, reflux, GERD, pericarditis, pleurisy MDM: 11:20 p.m. Chest pain of several hours duration, 1 hr worsening. The pain is described as a burning pain from right axilla to the left. He describes this as being consistent with when he had his heart attack last year. EKG does not show any acute ischemia. Vital signs are stable. I have ordered the remaining 2 I will discuss with Dr. Babb. 11:30 p.m. Case discussed with Dr. Babb. She recommends sublingual nitro rather than nitro paste. 11:50 p.m. EKG has been reviewed with Dr. Babb. We have calculated his [place] heart score at 5, and this is while Troponin is pending. Continue to monitor. 12:05 a.m. Chest x-ray as read by me is negative for any acute findings. 12:08 a.m. Troponin negative. I have re-evaluated the patient discussed the need for admission given the above. Patient is in agreement with this plan. Hospitalist has been paged. 12:15 a.m. Case discussed with the on-call hospitalist Dr. West. He will admit the patient to his service, observation status, PCU bed. Patient is admitted in stable condition. EKG interpretation: Dr. Babb Sinus rhythm. No acute ischemia SUPERVISION: Patient was evaluated and examined in conjunction with my secondary supervising physician as documented. We have both examined the patient. (Moisés Gore) ED PA DICTATION I evaluated and participated in the management of the patient. I also evaluated the patient independently. My co-signature indicates that I have reviewed this chart and I agree with the findings and plan of care as documented. My personal H&P findings include: This is a 46-year-old man with known CAD who presents with several hours of chest pain which is burning in nature and feels like his prior IL. EKGs shows pseudonormalization of T-waves. Troponin is negative. Given his high risk history, I feel she should be admitted to the hospitalist. This was discussed with the hospitalist application software engineer. (Andreia Babb) - Objective Vital Signs: Initial Vital Signs Temperature (C) 36.7 C 04/14/17 23:09 Heart Rate 80 04/14/17 23:09 Respiratory Rate 18 04/14/17 23:09 Blood Pressure 138/92 H 04/14/17 23:09 O2 Sat (%) 94 04/14/17 23:09 O2 Delivery Mode Room Air Allergies/Adverse Reactions: No Known Allergies Allergy (Verified 04/14/17 23:11) Home Medications: Medication Instructions Recorded Pantoprazole Sodium [Protonix 40mg 40 mg PO DAILY #30 tab 03/02/16 (*)] Ramipril [Altace 5mg (*)] 5 mg PO DAILY 08/22/16 Rosuvastatin Calcium [Crestor 40mg 40 mg PO DAILY 08/22/16 (*)] Laboratory Results: Laboratory Results 04/14/17 23:23 04/14/17 23:23 04/14/17 04/14/17 04/14/17 23:23 23:23 23:23 WBC 6.42 10^3/uL 10^3/uL (3.80-9.50) RBC 5.33 10^6/uL 10^6/uL (4.40-6.38) Hgb 16.1 g/dL g/dL (13.7-17.5) Hct 45.7 % % (40.0-51.0) MCV 85.7 fL fL (81.5-99.8) MCH 30.2 pg pg (27.9-34.1) MCHC 35.2 g/dL g/dL (32.4-36.7) RDW 11.9 % % (11.5-15.2) Plt Count 206 10^3/uL 10^3/uL (150-400) MPV 9.3 fL fL (8.7-11.7) Neut % (Auto) 49.3 % % (39.3-74.2) Lymph % (Auto) 38.9 % % (15.0-45.0) [place] % (Auto) 8.6 % % (4.5-13.0) Eos % (Auto) 2.5 % % (0.6-7.6) Baso % (Auto) 0.5 % % (0.3-1.7) Nucleat RBC Rel Count 0.0 % % (0.0-0.2) Absolute Neuts (auto) 3.17 10^3/uL 10^3/uL (1.70-6.50) Absolute Lymphs (auto) 2.50 10^3/uL 10^3/uL (1.00-3.00) Absolute Monos (auto) 0.55 10^3/uL 10^3/uL (0.30-0.80) Absolute Eos (auto) 0.16 10^3/uL 10^3/uL (0.03-0.40) Absolute Basos (auto) 0.03 10^3/uL 10^3/uL (0.02-0.10) Absolute Nucleated RBC 0.00 10^3/uL 10^3/uL (0-0.01) Immature Gran % 0.2 % % (0.0-1.1) Immature Gran # 0.01 10^3/uL 10^3/uL (0.00-0.10) PT 13.2 SEC SEC (12.0-15.0) INR 0.98 (0.83-1.16) APTT 26.3 SEC SEC (23.0-38.0) Sodium 143 mEq/L mEq/L (134-144) Potassium 4.1 mEq/L mEq/L (3.5-5.2) Chloride 104 mEq/L mEq/L (97-110) Carbon Dioxide 28 mEq/l mEq/l (22-31) Anion Gap 11 mEq/L mEq/L (8-16) BUN 18 mg/dL mg/dL (7-23) Creatinine 1.0 mg/dL mg/dL (0.7-1.3) Estimated GFR > 60 Glucose 94 mg/dL mg/dL (70-100) Calcium 9.7 mg/dL mg/dL (8.5-10.4) Troponin I < 0.012 ng/mL ng/mL (0.000-0.034) NT-Pro-B Natriuret Pep 33 pg/mL pg/mL (0-125) Lipase 275 IU/L IU/L (23-300) Medications Given: Discontinued Medications Aspirin (Aspirin) 324 mg PO EDNOW ONE Stop: 04/14/17 23:16 Last Admin: 04/14/17 23:25 Dose: Not Given Aspirin (Aspirin) 162 mg PO EDNOW ONE Stop: 04/14/17 23:24 Last Admin: 04/14/17 23:25 Dose: 162 mg Nitroglycerin (Nitro-Bid 2%) 0.5 inch TP EDNOW ONE Stop: 04/14/17 23:27 Last Admin: 04/14/17 23:57 Dose: Not Given Nitroglycerin (Nitrostat) 0.4 mg SL EDNOW ONE Stop: 04/14/17 23:29 Last Admin: 04/14/17 23:34 Dose: 0.4 mg Departure - Departure Disposition: [facility] Acute Clinical Impression: Acute chest pain CAD (coronary artery disease) Qualifiers: Coronary Disease-Associated Artery/Lesion type: [place] artery [place] vs. transplanted heart: [place] heart Associated angina: with unspecified angina Qualified Code(s): I25.119 - Atherosclerotic heart disease of [place] coronary artery with unspecified angina pectoris Condition: Good
[2017-04-14 23:27] LABS: % IMMATURE GRANULYOCYTES 0.2 % (0.0-1.1); ABSOLUTE IMMATURE GRANULOCYTES 0.01 10^3/uL (0.00-0.10); ADD DIFF? NO; ADD MORPH? NO; ADD SCAN? NO; ATYPICAL LYMPHOCYTE FLAG 0 (0-99); FRAGMENT RBC FLAG 0 (0-99); HEMATOCRIT 45.7 % (40.0-51.0); HEMOGLOBIN 16.1 g/dL (13.7-17.5); LEFT SHIFT FLG 0 (0-99); LIPEMIA HEMOLYSIS FLAG 90 (0-99); MEAN CELL HEMOGLOBIN 30.2 pg (27.9-34.1); MEAN CELL HEMOGLOBIN CONCENTR. 35.2 g/dL (32.4-36.7); MEAN CELL VOLUME 85.7 fL (81.5-99.8); MEAN PLATELET VOLUME 9.3 fL (8.7-11.7); PLATELET CLUMPS FLAG 0 (0-99); PLATELET COUNT 206 10^3/uL (150-400); RED BLOOD CELL COUNT 5.33 10^6/uL (4.40-6.38); RED CELL DISTRIBUTION WIDTH 11.9 % (11.5-15.2)
[2017-04-14] MEDS ORDERED: NITROGLYCERIN 0.4 MG BTL SL ONE (23:28)
[2017-04-14 23:36] LABS: INR 0.98 (0.83-1.16); PROTIME(PATIENT) 13.2 SEC (12.0-15.0)
[2017-04-14 23:37] LABS: APTT 26.3 SEC (23.0-38.0)
[2017-04-14 23:53] LABS: ANION GAP 11 mEq/L (8-16); CALCIUM 9.7 mg/dL (8.5-10.4); CARBON DIOXIDE 28 mEq/l (22-31); CHLORIDE 104 mEq/L (97-110); GLOMERULAR FILTRATION RATE > 60; GLUCOSE 94 mg/dL (70-100); POTASSIUM 4.1 mEq/L (3.5-5.2); SODIUM 143 mEq/L (134-144)
[2017-04-15 00:06] LABS: TROPONIN I < 0.012 ng/mL (0.000-0.034)
[2017-04-15] MEDS ORDERED: ONDANSETRON DISINTEGRATING 4 MG TAB PO PRN (00:19)
[2017-04-15] MEDS ORDERED: ACETAMINOPHEN 325 MG TAB PO PRN (00:19)
[2017-04-15] MEDS ORDERED: ONDANSETRON 4 MG/2 ML VIAL IVP PRN (00:19)
--- NOTE | 2017-04-15 00:40 | PDGENHP ---
History and Physical - Chief Complaint Chest pain - History of Present Illness 46 yo M w/ hx of CAD s/p BMS to proximal LAD on 03/10 presents with chest pain. Patient describes feeling fatigued most of the day and also experiencing indigestion. Then, while in bed ready to go to sleep, he began to notice right axillary discomfort that felt like a muscle cramp. Over the next hour this spread across his chest to his left axilla and proximal left arm. These symptoms were mild to moderate and associated with some mild dizziness; no relief from NTG. He states these symptoms are similar to when he had his cardiac event in February of 2016. In the ED initial evaluation was negative for objective signs of ischemia. He is being admitted for observation and further testing. History Information - Allergies/Home Medication List Allergies/Adverse Reactions: No Known Allergies Allergy (Verified 04/14/17 23:11) Home Medications: Ramipril [Altace 5mg (*)] 5 mg PO DAILY 08/22/16 [Last Taken 08/22/16 08:00] Rosuvastatin Calcium [Crestor 40mg (*)] 40 mg PO DAILY 08/22/16 [Last Taken 08:00] I have personally reviewed and updated: family history, medical history Past Medical History: DE with stent (02/25/16), mural thrombus - Past Medical History Additional medical history: anterior wall DE. LV thrombus - Surgical History Reports: no pertinent surgical hx - Family History Positive for: father with history of CAD younger than 55 (age 40) Additional family history: PGF: CAD. M: homocysteine deficiency - Social History Smoking Status: Never smoked Additional social history: Pt lives with , works in an office setting. Review of Systems Review of Systems: ROS: 10pt was reviewed & negative except for what was stated in HPI & below Physical Exam Physical Exam: Temp Pulse Resp BP Pulse Ox 36.7 C 80 18 138/92 H 94 04/14/17 23:09 04/14/17 23:09 04/14/17 23:09 04/14/17 23:09 04/14/17 23:09 Constitutional: no apparent distress, not in pain Eyes: PERRL, EOMI Ears, Nose, Mouth, Throat: moist mucous membranes, no oral mucosal ulcers Cardiovascular: regular rate and rhythym, no murmur, rub, or gallop Respiratory: no respiratory distress, clear to auscultation Gastrointestinal: normoactive bowel sounds, soft, non-tender abdomen Skin: warm, normal color Musculoskeletal: full muscle strength, no muscle tenderness Neurologic: AAOx3, CN II-XII Intact Psychiatric: interacting appropriately, not anxious Lab Data & Imaging Review 04/14/17 23:23 04/14/17 23:23 WBC 6.42 10^3/uL (3.80-9.50) 04/14/17 23:23 RBC 5.33 10^6/uL (4.40-6.38) 04/14/17 23:23 Hgb 16.1 g/dL (13.7-17.5) 04/14/17 23:23 Hct 45.7 % (40.0-51.0) 04/14/17 23:23 MCV 85.7 fL (81.5-99.8) 04/14/17 23:23 MCH 30.2 pg (27.9-34.1) 04/14/17 23: MCHC 35.2 g/dL (32.4-36.7) 04/14/17 23:23 RDW 11.9 % (11.5-15.2) 04/14/17 23:23 Plt Count 206 10^3/uL (150-400) 04/14/17 23:23 MPV 9.3 fL (8.7-11.7) 04/14/17 23:23 Neut % (Auto) 49.3 % (39.3-74.2) 04/14/17 23:23 Lymph % (Auto) 38.9 % (15.0-45.0) 04/14/17 23:23 [place] % (Auto) 8.6 % (4.5-13.0) 04/14/17 23:23 Eos % (Auto) 2.5 % (0.6-7.6) 04/14/17 23:23 Baso % (Auto) 0.5 % (0.3-1.7) 04/14/17 23:23 Nucleat RBC Rel Count 0.0 % (0.0-0.2) 04/14/17 23:23 Absolute Neuts (auto) 3.17 10^3/uL (1.70-6.50) 04/14/17 23:23 Absolute Lymphs (auto) 2.50 10^3/uL (1.00-3.00) 04/14/17 23:23 Absolute Monos (auto) 0.55 10^3/uL (0.30-0.80) 04/14/17 23:23 Absolute Eos (auto) 0.16 10^3/uL (0.03-0.40) 04/14/17 23:23 Absolute Basos (auto) 0.03 10^3/uL (0.02-0.10) 04/14/17 23:23 Absolute Nucleated RBC 0.00 10^3/uL (0-0.01) 04/14/17 23: Immature Gran % 0.2 % (0.0-1.1) 04/14/17 23: Immature Gran # 0.01 10^3/uL (0.00-0.10) 04/14/17 23:23 PT 13.2 SEC (12.0-15.0) 04/14/17 23:23 INR 0.98 (0.83-1.16) 04/14/17 23:23 APTT 26.3 SEC (23.0-38.0) 04/14/17 23:23 Sodium 143 mEq/L (134-144) 04/14/17 23:23 Potassium 4.1 mEq/L (3.5-5.2) 04/14/17 23:23 Chloride 104 mEq/L (97-110) 04/14/17 23:23 Carbon Dioxide 28 mEq/l (22-31) 04/14/17 23:23 Anion Gap 11 mEq/L (8-16) 04/14/17 23:23 BUN 18 mg/dL (7-23) 04/14/17 23:23 Creatinine 1.0 mg/dL (0.7-1.3) 04/14/17 23:23 Estimated GFR > 60 04/14/17 23:23 Glucose 94 mg/dL (70-100) 04/14/17 23:23 Calcium 9.7 mg/dL (8.5-10.4) 04/14/17 23:23 Troponin I < 0.012 ng/mL (0.000-0.034) 04/14/17 23:23 NT-Pro-B Natriuret Pep 33 pg/mL (0-125) 04/14/17 23:23 Lipase 275 IU/L (23-300) 04/14/17 23:23 Visualized and Interpreted Chest x-ray results: Yes Chest X-Ray results: no infiltrate Visualized and Interpreted EKG results: Yes EKG Interpretation: Positive for: normal sinsus rhythm (Indeterminate ST changes in lead II but these are stable from previous ECGs) Assessment & Plan Assessment: 46 yo M w/ hx of CAD s/p BMS to proximal LAD on 03/10 presents with chest pain. Plan: 1. Acute chest pain - Developed a few hours prior to admission; described as cramping pain spreading across chest to bilateral axillae. He states these symptoms are similar to his prior anterior DE in February of 2016. Objective data in the ED (troponin, ECG) negative for acute ischemia. - Admit for observation, monitor on telemetry, trend cardiac enzymes - Noting history and similarity to previous DE symptoms, reasonable to perform inpatient risk stratification - Will repeat nuclear stress imaging noting we have a baseline performed in July of this year 2. CAD - S/p BMS to proximal LAD on 03/10. He recently stopped Effient after a full year (although he had a BMS) and is now on ASA, statin, and VANESSA. 3. GERD - On daily PPI. Diet - NPO pending stress test Code - Full Ppx - LMWH Dispo - Admit to PCU under observation status
[2017-04-15 04:09] LABS: % IMMATURE GRANULYOCYTES 0.2 % (0.0-1.1); ABSOLUTE IMMATURE GRANULOCYTES 0.01 10^3/uL (0.00-0.10); ADD DIFF? NO; ADD MORPH? NO; ADD SCAN? NO; ATYPICAL LYMPHOCYTE FLAG 0 (0-99); FRAGMENT RBC FLAG 0 (0-99); HEMATOCRIT 42.8 % (40.0-51.0); HEMOGLOBIN 14.9 g/dL (13.7-17.5); LEFT SHIFT FLG 0 (0-99); LIPEMIA HEMOLYSIS FLAG 90 (0-99); MEAN CELL HEMOGLOBIN CONCENTR. 34.8 g/dL (32.4-36.7); MEAN CELL VOLUME 86.3 fL (81.5-99.8); MEAN PLATELET VOLUME 9.7 fL (8.7-11.7); PLATELET CLUMPS FLAG 0 (0-99); PLATELET COUNT 194 10^3/uL (150-400); RED BLOOD CELL COUNT 4.96 10^6/uL (4.40-6.38)
[2017-04-15 04:14] LABS: ANION GAP 12 mEq/L (8-16); CALCIUM 9.6 mg/dL (8.5-10.4); CARBON DIOXIDE 24 mEq/l (22-31); CHLORIDE 107 mEq/L (97-110); CREATININE 0.9 mg/dL (0.7-1.3); GLOMERULAR FILTRATION RATE > 60; GLUCOSE 91 mg/dL (70-100); POTASSIUM 4.4 mEq/L (3.5-5.2); SODIUM 143 mEq/L (134-144)
[2017-04-15 04:22] LABS: TROPONIN I < 0.012 ng/mL (0.000-0.034)
[2017-04-15] MEDS ORDERED: ENOXAPARIN 40 MG/0.4 ML SYR SC SCH (09:00)
--- NOTE | 2017-04-15 10:04 | ASMTCMCOM ---
CM Note CM Note Notes: Pt admitted w/chest pain, has hx of CAD and AR in 2016. He lives at home w/. Anticpate dc home w/no CM needs when medically ready. CM will follow for any changes/needs. Date Signed: 04/15/2017 10:03 AM Electronically Signed By:Tessa Smith RN
[2017-04-15 11:08] VITALS: BP 120/84; PULSE 85; RESP 18; TEMP 97.6; O2SAT 91
--- NOTE | 2017-04-15 13:29 | CPR ---
[f rep st] NONINVASIVE CARDIAC PROCEDURE REPORT DATE OF PROCEDURE: 04/15/2017 PROCEDURE: Exercise nuclear stress test INDICATION: The patient is a 46-year-old male with a history of anterior VA 1 year ago with stenting to the LAD. He presented to the hospital after having 1 day of indigestion-type symptoms. This the n transitioned to right-sided chest discomfort and from there, he had a burning discomfort across his chest. This was similar to how he presented at the time of his heart attack a year ago. He denies any history of hypertension, diabetes, or tobacco use. He is currently on statin therapy. He has a family history of coronary artery disease with his paternal uncle having an VA in his 40s. DESCRIPTION OF PROCEDURE: Consent was obtained. The patient was placed on continuous telemetry. Hi s resting EKG revealed normal sinus rhythm without any ST-T wave changes to suggest ischemia. The umm catherine exercised on the treadmill for 13 minutes and 45 seconds without any associated symptoms. He r emained in normal sinus rhythm throughout the study. At peak exertion, he did develop 1 mm of flat S T depression in the inferior leads. This recovered within 2 minutes of recovery. His blood pressure at rest was 120/80. It increased appropriately, peaking at 170/70. His blood pre ssure returned to baseline 5 minutes into recovery at 120/82. PLAN: Abnormal exercise treadmill test with [address] depression in the inferior leads. Await nucl ear images. /[id number]/MODL
--- NOTE | 2017-04-15 14:03 | HOSPPROG ---
Hospitalist Progress Note Assessment/Plan: 46 yo M w/ hx of CAD s/p BMS to proximal LAD on 03/10 admitted with chest pain. W/U negative to include negative tropoin, unremarkable EKG. Stress test unremarkable per cardiology report. Normal perfusion w.o e.o MN or ischemia. Normal Myocardial contractility. LVEF 58%. As w/u negative and no further CP, he will be d/c home. He will need f/u with his PCP as well as with Cardiology in 1-2 weeks. DDX 1. Acute chest pain 2. CAD - S/p BMS to proximal LAD on 03/10. He recently stopped Effient after a full year (although he had a BMS) and is now on ASA, statin, and VANESSA. 3. GERD - On daily PPI. Exam: VSS NAD AAOX3 RRR CTA B S/NT/ND NO LE EDEMA MEDS: SEE MED REC F/U: PER ABOVE TOTAL TIME SPENT ON D/C IS 35 MINS Objective: Vital Signs Temp Pulse Resp BP Pulse Ox 36.4 C 85 18 120/84 H 91 L 04/15/17 11:08 04/15/17 11:08 04/15/17 11:08 04/15/17 11:08 04/15/17 11:08 Laboratory Results 04/15/17 03:23 04/15/17 03:23 PT 13.2 SEC (12.0-15.0) 04/14/17 23:23 INR 0.98 (0.83-1.16) 04/14/17 23:23 ICD10 Worksheet Patient Problems: Problems Problem Status Onset Acute chest pain Acute CAD (coronary artery disease) Acute ACS (acute coronary syndrome) Acute Chest pain Acute Chest pain Acute S/P cardiac cath Acute
--- NOTE | 2017-04-15 18:02 | ASDISCHSUM ---
Discharge Information Plan Status:Home with No Needs Medically Cleared to Leave: Discharge Date:04/15/2017 02:55 PM CM D/C Disposition:Home, Routine, Self-Care ADT D/C Disposition:Home, Routine, Self-Care Projected Discharge Date:04/15/2017 02:55 PM Transportation at D/C: Discharge Delay Reason: Follow-Up Date:04/15/2017 02:55 PM Discharge Slot: Final Diagnosis: Placement Information Patient Contact Information Contact Name:AYAAN Relationship: Address:[address] Work Phone: City:[facility] Phone: [facility]/Zip Code:[place] [address] Email: Financial Information Financial Class:HMO and PPO Plans Primary Plan Desc: OUT OF STATE PPO Primary Plan Number:[id number] Secondary Plan Desc: Secondary Plan Number: Assessment Information [facility] CM Progress Note CM Note CM Note Notes: Pt admitted w/chest pain, has hx of CAD and VT in 2016. He lives at home w/. Anticpate dc home w/no CM needs when medically ready. CM will follow for any changes/needs. Date Signed: 04/15/2017 10:03 AM Electronically Signed By:Tessa Smith RN Intervention Information
[2017-04-16] MEDS ORDERED: RAMIPRIL 2.5 MG CAP PO SCH (09:00)
[2017-04-16] MEDS ORDERED: ASPIRIN 81 MG CHEWABLE TAB PO SCH (09:00)
[2017-04-16] MEDS ORDERED: ROSUVASTATIN CALCIUM 40 MG TAB PO SCH (09:00)
[2017-04-16] MEDS ORDERED: PANTOPRAZOLE SODIUM 40 MG TAB PO SCH (09:00)
== END 2017-04-15 14:55 | disposition home or self-care (01) ==
LOC: F2W 04-15 00:49
PROVIDERS: ADMIT Student in an Organized Health Care Education/Training Program; ATTEND Family Medicine
DX: R07.9 Chest pain, unspecified (principal); I25.10 Atherosclerotic heart disease of native coronary artery without angina pectoris; R94.39 Abnormal result of other cardiovascular function study; K21.9 Gastro-esophageal reflux disease without esophagitis; I25.2 Old myocardial infarction; K44.9 Diaphragmatic hernia without obstruction or gangrene; E78.5 Hyperlipidemia, unspecified; Z79.82 Long term (current) use of aspirin; Z86.718 Personal history of other venous thrombosis and embolism; Z82.49 Family history of ischemic heart disease and other diseases of the circulatory system
CPT/HCPCS: 71010; 78452; 93005; 93017; 99285; A9500; G0378; J1650

== ENCOUNTER 2018-09-17 15:33 | Emergency (ER) | payer OTHER ==
[2018-09-17 16:12] LABS: PLATELET COUNT 232 10^3/uL (150-400)
--- NOTE | 2018-09-17 17:05 | CPEKG ---
Test Reason : OPEN Blood Pressure : / mmHG Vent. Rate : 065 BPM Atrial Rate : 065 BPM P-R Int : 187 ms QRS Dur : 099 ms QT Int : 406 ms P-R-T Axes : 048 037 027 degrees QTc Int : 423 ms Sinus rhythm Confirmed by Sonu Vazquez ([id number]) on 09/17/2018 5:04:32 PM Referred By: PHYSICIAN ED Confirmed By:Sonu Vazquez
--- NOTE | 2018-09-17 17:19 | EDPHY ---
H & P Time Seen by Provider: 09/17/18 16:18 HPI/ROS: Chief complaint. Chest pain HPI. Patient is a 47-year-old male with known coronary artery disease and stent in the proximal LAD in February 2016. Patient ran half marathon 1 week ago and felt fine. However this week he has had some dizziness and fatigue over the past 6 days. He has off and on burning left anterior chest discomfort that occasionally radiates to his left shoulder blade. Occasionally will last up to 2 hr. He has had no fever cough. His discomfort is not worse or brought on by exertion or deep breathing. It seems like it is maybe worse with lying down and flat. 2 weeks ago he had an normal nuclear stress test and treadmill. Patient was admitted in March 2018 for chest pain and had a normal workup. Patient has no chest discomfort now. ROS 10 systems were reviewed and negative with the exception of the elements mentioned in the history of present illness Past Medical/Surgical History: IL with cardiac stent February 2016, and radial mural thrombus, hypertension, dyslipidemia Family history paternal grandfather had an IL in his 40s Social History: , nonsmoker, no alcohol Smoking Status: Never smoked Physical Exam: General Appearance: Alert pleasant well-developed male mild distress vital signs are stable Eyes: Pupils equal and round no pallor or injection. ENT, Mouth: Mucous membranes are moist. Respiratory: There are no retractions, lungs are clear to auscultation. Cardiovascular: Regular rate and rhythm. Gastrointestinal: Abdomen is soft and nontender, no masses, bowel sounds normal. Neurological: Awake and alert, sensory and motor exams grossly normal. Skin: Warm and dry, no rashes. Musculoskeletal: Neck is supple nontender. Extremities symmetrical, full range of motion. Psychiatric: Patient is oriented X 3, there is no agitation. Constitutional: Initial Vital Signs Temperature (C) 36.7 C 09/17/18 15:40 Heart Rate 70 09/17/18 15:40 Respiratory Rate 16 09/17/18 15:40 Blood Pressure 138/95 H 09/17/18 15:40 O2 Sat (%) 97 09/17/18 15:40 O2 Delivery Mode Room Air Allergies/Adverse Reactions: No Known Allergies Allergy (Verified 04/14/17 23:11) Home Medications: Medication Instructions Recorded Pantoprazole Sodium [Protonix 40mg 40 mg PO DAILY #30 tab 11/08/16 (*)] Rosuvastatin Calcium [Crestor 40mg 40 mg PO DAILY 08/22/16 (*)] Aspirin [Aspirin 81mg (*)] 81 mg PO DAILY 04/15/17 Medical Decision Making - Diagnostics EKG Interpretation: EKG interpreted by me shows normal sinus rhythm normal interval and axis. QRS is normal there is no significant ST elevation or depression. No arrhythmia. The rate is 65 This is unchanged from previous EKG March 2018 Procedures: IV normal saline, monitor ED Course/Re-evaluation: re-evaluation at 5:00 p.m.. Patient is stable. Patient and I discussed EKG findings laboratory evaluation. I have recommended admission as the patient has known coronary artery disease with previous IL and stent. He also realize that this is a long holiday weekend and that he will not be able to be seen until Tuesday. He is encouraged to return at any point for worsening symptoms Differential Diagnosis: Chest pain in a man with known coronary artery disease previous IL and stent. The workup at this point is normal without EKG change or elevated troponin. However I have recommended admission for this patient. He would like to be treated as an outpatient. - Data Points Laboratory Results: Laboratory Results 09/17/18 15:50 09/17/18 15:50 09/17/18 09/17/18 09/17/18 15:52 15:50 15:50 WBC 5.42 10^3/uL 10^3/uL (3.80-9.50) RBC 5.33 10^6/uL 10^6/uL (4.40-6.38) Hgb 15.9 g/dL g/dL (13.7-17.5) Hct 46.2 % % (40.0-51.0) MCV 86.7 fL fL (81.5-99.8) MCH 29.8 pg pg (27.9-34.1) MCHC 34.4 g/dL g/dL (32.4-36.7) RDW 11.9 % % (11.5-15.2) Plt Count 232 10^3/uL 10^3/uL (150-400) MPV 9.5 fL fL (8.7-11.7) Neut % (Auto) 48.5 % % (39.3-74.2) Lymph % (Auto) 39.7 % % (15.0-45.0) [place] % (Auto) 8.5 % % (4.5-13.0) Eos % (Auto) 2.4 % % (0.6-7.6) Baso % (Auto) 0.7 % % (0.3-1.7) Nucleat RBC Rel Count 0.0 % % (0.0-0.2) Absolute Neuts (auto) 2.63 10^3/uL 10^3/uL (1.70-6.50) Absolute Lymphs (auto) 2.15 10^3/uL 10^3/uL (1.00-3.00) Absolute Monos (auto) 0.46 10^3/uL 10^3/uL (0.30-0.80) Absolute Eos (auto) 0.13 10^3/uL 10^3/uL (0.03-0.40) Absolute Basos (auto) 0.04 10^3/uL 10^3/uL (0.02-0.10) Absolute Nucleated RBC 0.00 10^3/uL 10^3/uL (0-0.01) Immature Gran % 0.2 % % (0.0-1.1) Immature Gran # 0.01 10^3/uL 10^3/uL (0.00-0.10) Sodium 139 mEq/L mEq/L (135-145) Potassium 4.2 mEq/L mEq/L (3.5-5.2) Chloride 104 mEq/L mEq/L (97-110) Carbon Dioxide 25 mEq/l mEq/l (22-31) Anion Gap 10 mEq/L mEq/L (6-14) BUN 17 mg/dL mg/dL (7-23) Creatinine 0.9 mg/dL mg/dL (0.7-1.3) Estimated GFR > 60 Glucose 87 mg/dL mg/dL (70-100) Calcium 9.6 mg/dL mg/dL (8.5-10.4) POC Troponin I 0.01 ng/mL ng/mL (0.00-0.08) Point of Care Test Results: Chemistry 09/17/18 15:52 POC Troponin I 0.01 ng/mL ng/mL (0.00-0.08) Departure - Departure Disposition: Home, Routine, Self-Care Clinical Impression: Chest pain Qualifiers: Chest pain type: unspecified Qualified Code(s): R07.9 - Chest pain, unspecified Condition: Fair Instructions: Chest Pain (ED) Additional Instructions: Easy activity the next 2 days until see cardiology Return for worsening chest discomfort or trouble breathing Call Cardiology on Tuesday for further evaluation Referrals: Unknown,Unknown [Primary Care Provider] - As per Instructions Bakari Hernandez MD [Medical Doctor] - 1-2 days without fail
[2018-09-17 17:44] VITALS: BP 128/66
== END 2018-09-17 17:42 | disposition home or self-care (01) ==
DX: R07.9 Chest pain, unspecified (principal); I11.9 Hypertensive heart disease without heart failure; I25.10 Atherosclerotic heart disease of native coronary artery without angina pectoris; I25.2 Old myocardial infarction; Z82.49 Family history of ischemic heart disease and other diseases of the circulatory system; Z95.5 Presence of coronary angioplasty implant and graft
CPT/HCPCS: 84484-ER